=== PATIENT | male | born 1930 | race Caucasian/White ===

== ENCOUNTER 2016-07-31 13:24 | Emergency (ER) | payer OTHER, MEDICARE ==
[2016-07-31 13:31] VITALS: BP 141/83; PULSE 91; TEMP 97.5; BMI 18.6
== END 2016-07-31 14:18 | disposition left against medical advice (07) ==
LOC: EDBD → JER 13:24
DX: Z53.21 Procedure and treatment not carried out due to patient leaving prior to being seen by health care provider (principal)
CPT/HCPCS: 99281-25

== ENCOUNTER 2016-08-11 14:05 | Observation (INO) | payer OTHER, MEDICARE ==
[2016-08-11] MEDS ORDERED: SODIUM CHLORIDE 1,000 ML IV SCH (14:45)
--- NOTE | 2016-08-11 14:51 | PDOC ---
History of Present Illness - General History Source: Patient, Spouse Exam Limitations: No Limitations - History of Present Illness Initial Comments: 08/11/16 14:48 The patient is an 86-year-old male, accompanied by spouse, with a significant past medical history of chronic constipation, glaucoma and borderline diabetes who presents to the emergency department via EMS for evaluation of generalized weakness and vomiting. As per patients spouse, the patient was noted to have a headache, experiencing nausea with an episode of emesis. Patients spouse attributes to his chronic generalized weakness and loss of appetite for the past 6 months. No recent fevers, chills, cough, chest pain, shortness of breath. Patients spouse also reports his chronic constipation, for which he underwent an outpatient CT at [facility], approximately 1 month ago, which was reportedly negative. Patient's spouse reports the patient has been compliant with laxatives and enemas for the past 3 days and admits his constipation has been resolved after the intake of magnesium citrate and Senna, as he had a large bowel movement this morning. No history of abdominal surgeries. Allergies: None Known Past Surgical History: None reported Social History: Retired. Lives at home with his . Never smoked. No ETOH and recreational drug use. Primary Care Physician: Dr. Carmine Kramer Remainder of the review of systems is negative. <Jie Laguerre - Last Filed: 08/11/16 16:45> - History of Present Illness Initial Comments: 08/11/16 15:58 86-year-old male with a past medical history of chronic constipation and glaucoma as well as borderline diabetes Patient's says in the past few months has lost 20 pounds, and his chronic constipation and has gotten worse, and his appetite has diminished He was seen at [facility] about a month ago, and reportedly had a CT scan of the abdomen and pelvis which was normal He got more constipated, but yesterday he took mag citrate, and had a very large bowel movement, and then took senna last night and had another large bowel movement this morning His brought him in because today he was complaining about a headache and nausea, and then vomited a few times She states for the past few days she's been weak and not eating He denies any fevers or chills He denies any urinary symptoms He states that he has not had any abdominal pain since he had his bowel movement <Ed Sanchezee - Last Filed: 08/11/16 20:37> - General Chief Complaint: Constipation Stated Complaint: DIZZINESS, VOMITING Time Seen by Provider: 08/11/16 14:10 Past History <Jie Laguerre - Last Filed: 08/11/16 16:45> - Psycho/Social/Smoking Cessation Hx Anxiety: No Suicidal Ideation: No Smoking History: Never smoked Have you smoked in the past 12 months: No Information on smoking cessation initiated: No Hx Alcohol Use: No Drug/Substance Use Hx: No Substance Use Type: None <Jackeline Sanchez - Last Filed: 08/11/16 20:37> - Past Medical History Allergies/Adverse Reactions: Allergies Allergy/AdvReac Type Severity Reaction Status Date / Time No Known Allergies Allergy Verified 08/11/16 14:25 Home Medications: Ambulatory Orders Unobtainable [Unobtainable] 08/11/16 Review of Systems - Review of Systems Able to Perform ROS?: Yes Comments:: 08/11/16 14:48 12 point review of systems is as per history of present illness and otherwise negative. <CarlottaJie - Last Filed: 08/11/16 16:45> *Physical Exam - Vital Signs Last Vital Signs Temp Pulse Resp BP Pulse Ox 98.6 F 62 20 135/58 100 08/11/16 14:22 08/11/16 14:22 08/11/16 14:22 08/11/16 14:22 08/11/16 14:22 <CarlottaJie - Last Filed: 08/11/16 16:45> - Vital Signs Last Vital Signs Temp Pulse Resp BP Pulse Ox 98.6 F 62 20 135/58 100 08/11/16 14:22 08/11/16 14:22 08/11/16 14:22 08/11/16 14:22 08/11/16 14:22 - Physical Exam Comments: 08/11/16 14:50 Physical exam Last Vital Signs Temp Pulse Resp BP Pulse Ox 98.6 F 62 20 135/58 100 08/11/16 14:22 08/11/16 14:22 08/11/16 14:22 08/11/16 14:22 08/11/16 14:22 GENERAL: The patient is awake, alert, and answering questions Thin, almost cachectic male in no acute distress HEAD: Normal with no signs of trauma. EYES: Sclera anicteric, conjunctiva normal ENT: Mucous membranes slightly dry NECK: Normal range of motion, supple LUNGS: Breath sounds equal, clear to auscultation bilaterally. No wheezes, and no crackles. HEART: Regular rate and rhythm, normal S1 and S2 without murmur, rub or gallop. ABDOMEN: Soft, nontender, normoactive bowel sounds. No guarding, no rebound. No masses appreciated. EXTREMITIES: Normal range of motion, no edema. No clubbing or cyanosis. No cords, erythema, or tenderness. NEUROLOGICAL: Alert and answering questions, moving all extremities, grossly nonfocal neurologic exam PSYCH: Normal mood, normal affect. SKIN: Warm, Dry, normal turgor, no rashes or lesions noted. <Jackeline Sanchez - Last Filed: 08/11/16 20:37> ED Treatment Course - LABORATORY CBC & Chemistry Diagram: 08/11/16 14:44 08/11/16 14:44 - ADDITIONAL ORDERS Additional order review: Laboratory Results 08/11/16 08/11/16 14:55 14:44 Sodium 141 Potassium 4.7 Chloride 105 Carbon Dioxide 24 Anion Gap 12 BUN 18 Creatinine 1.3 Creat Clearance w eGFR 52.10 Random Glucose 230 H Calcium 8.9 Magnesium 2.6 H Total Bilirubin 0.5 AST 16 ALT 17 Alkaline Phosphatase 85 Creatine Kinase 77 Troponin I < 0.02 Total Protein 6.3 L Albumin 3.6 Lipase 151 Urine Color Yellow Urine Appearance Slcloudy Urine pH 8.0 Ur Specific [place] 1.009 Urine Protein Negative Urine Glucose (UA) Negative Urine Ketones Trace H Urine Blood Negative Urine Nitrite Negative Urine Bilirubin Negative Urine Urobilinogen Negative Ur Leukocyte Esterase Negative 08/11/16 14:44 RBC 4.51 MCV 92.3 MCHC 32.9 RDW 14.3 MPV 9.3 - RADIOLOGY Radiograph Interpretation: 08/11/16 15:50 EXAM: CT/HEAD CT WITHOUT CONTRAST IMPRESSION: There is no CT evidence of intracranial hemorrhage. No discrete infarct is identified. Mild to moderate periventricular and subcortical microvascular ischemic gliosis is noted. There is no obvious mass lesion. No extra axial fluid collection. Involutional changes are seen with corresponding mild to moderate ventricular dilatation. Small physiologic bilateral basal ganglia calcifications. Bilateral maxillary sinus and left sphenoid sinus mucus retention cysts/polyps are visualized. Mild bilateral ethmoid sinus mucosal thickening. EXAM: CT/ABDOMEN PELVIS CT W/O CONTR IMPRESSION: Multiplanar imaging was performed. As requested no intravenous or enteric contrast was administered. There is no evidence of pneumoperitoneum, free intraperitoneal fluid or bowel obstruction. The partially visualized appendix demonstrates no obvious abnormality. No indirect CT signs of acute appendicitis are noted. Left-sided colonic diverticulosis without definite evidence of acute diverticulitis. The partially imaged lower lung villegas demonstrate minimal to mild bibasilar discoid atelectasis/ linear parenchymal scarring. No aortic aneurysm. A 1 cm right hepatic lobe cyst is noted. The liver appears unremarkable in overall size. The spleen , pancreas, gallbladder, adrenal glands and kidneys demonstrate no obvious noncontrast abnormality. Incidental bilateral renal cortical cysts. No obvious lymphadenopathy. Very small left inguinal hernia containing fat only. Mild to moderate prostate enlargement. Mild to moderate very likely chronic L4 superior endplate compression fracture without bony retropulsion. <Jie Laguerre - Last Filed: 08/11/16 16:45> - LABORATORY CBC & Chemistry Diagram: 08/11/16 14:44 08/11/16 14:44 - RADIOLOGY Radiology Studies Ordered: Category Date Time Status ABDOMEN & PELVIS CT W/O CONTR [CT] Stat CT Scan 08/11/16 14:[address] WITHOUT CONTRAST [CT] Stat CT Scan 08/11/16 14:36 Ordered CHEST X-RAY PORTABLE* [RAD] Stat Radiology 08/11/16 14:36 Ordered <Jackeline Sanchez - Last Filed: 08/11/16 20:37> Medical Decision Making - Medical Decision Making 08/11/16 16:05 MicroBlogged Hospitalist. <Jie Laguerre - Last Filed: 08/11/16 16:45> - Medical Decision Making 08/11/16 14:48 86-year-old male with a past medical history of chronic constipation and glaucoma as well as borderline diabetes Patient's says in the past few months has lost 20 pounds, and his chronic constipation and has gotten worse, and his appetite has diminished He was seen at [facility] about a month ago, and reportedly had a CT scan of the abdomen and pelvis which was normal He got more constipated, but yesterday he took mag citrate, and had a very large bowel movement, and then took senna last night and had another large bowel movement this morning His brought him in because today he was complaining about a headache and nausea, and then vomited a few times She states for the past few days she's been weak and not eating He denies any fevers or chills He denies any urinary symptoms He states that he has not had any abdominal pain since he had his bowel movement 08/11/16 14:52 EKG Normal sinus rhythm 63, left axis deviation -50 Normal [place] interval Right bundle branch block Left anterior fascicular block Diffuse nonspecific ST-T waves 1 PAC is noted There are no old EKGs available for comparison at this time 08/11/16 15:57 Laboratory Results - last 24 hr 08/11/16 08/11/16 08/11/16 14:44 14:44 14:55 WBC 13.3 H RBC 4.51 Hgb 13.7 Hct 41.6 MCV 92.3 MCHC 32.9 RDW 14.3 Plt Count 206 MPV 9.3 Sodium 141 Potassium 4.7 Chloride 105 Carbon Dioxide 24 Anion Gap 12 BUN 18 Creatinine 1.3 Creat Clearance w eGFR 52.10 Random Glucose 230 H Calcium 8.9 Magnesium 2.6 H Total Bilirubin 0.5 AST 16 ALT 17 Alkaline Phosphatase 85 Creatine Kinase 77 Troponin I < 0.02 Total Protein 6.3 L Albumin 3.6 Lipase 151 Urine Color Yellow Urine Appearance Slcloudy Urine pH 8.0 Ur Specific [place] 1.009 Urine Protein Negative Urine Glucose (UA) Negative Urine Ketones Trace H Urine Blood Negative Urine Nitrite Negative Urine Bilirubin Negative Urine Urobilinogen Negative Ur Leukocyte Esterase Negative CT scan of the abdomen and pelvis without contrast There is left-sided colonic diverticulosis without acute diverticulitis The appendix is normal There is a very small left inguinal hernia containing fat only No definite acute pathology is identified CT scan of the head without No CT evidence of acute intracranial pathology Patient vomited some mildly brownish material-given Zofran and Protonix Elevated white count vomiting dehydration will need admission-will merly hospitalist Unexplained weight loss, vomiting, dehydration case d/w hospitalist continue gentle IV hydrarion <Jackeline Sanchez - Last Filed: 08/11/16 20:37> *DC/Admit/Observation/Transfer - Attestations Scribe Attestion: 08/11/16 14:48 Documentation prepared by Jie Laguerre, acting as medical records clerk for Jackeline Sanchez MD. <Jie Laguerre - Last Filed: 08/11/16 16:45> - Discharge Dispostion Admit: Yes <Jackeline Sanchez - Last Filed: 08/11/16 20:37> Diagnosis at time of Disposition: Vomiting, Abdominal pain, Dehydration, Headache, Weight loss, unintentional - Referrals
[2016-08-11 14:56] LABS: MCH 30.4 pg (25.7-33.7); MCHC 32.9 g/dl (32.0-35.9); MEAN CELL VOLUME 92.3 fl (80-96); MEAN PLT VOLUME 9.3 fl (7.5-11.1); PLATELET COUNT 206 K/MM3 (134-434); RDW 14.3 % (11.9-15.9); WHITE BLOOD COUNT 13.3 K/mm3 (4.0-10.0)
[2016-08-11 15:13] LABS: URINE APPEARANCE SLCLOUDY; URINE BILIRUBIN NEGATIVE (NEGATIVE); URINE BLOOD NEGATIVE (NEGATIVE); URINE COLOR YELLOW; URINE GLUCOSE (UA) NEGATIVE (NEGATIVE); URINE KETONE TRACE (NEGATIVE); URINE LEUK ESTERASE NEGATIVE (NEGATIVE); URINE NITRITE NEGATIVE (NEGATIVE); URINE PROTEIN NEGATIVE (NEGATIVE); URINE UROBILINOGEN NEGATIVE E.U./dl (0.2-1.0)
[2016-08-11 15:14] LABS: ALBUMIN 3.6 g/dl (3.4-5.0); ANION GAP 12 (8-16); BILIRUBIN,TOTAL 0.5 mg/dL (0.2-1.0); CALCIUM 8.9 mg/dL (8.5-10.1); CO2 24 mmol/L (21-32); CREATININE 1.3 mg/dL (0.7-1.3); GLUCOSE,RANDOM 230 mg/dL (74-106); MAGNESIUM 2.6 mg/dL (1.8-2.4); SGOT/AST 16 U/L (15-37); SGPT/ALT 17 U/L (12-78); TOT PROT 6.3 g/dl (6.4-8.2)
[2016-08-11 15:17] LABS: ALK PHOS 85 U/L (45-117); TROPONIN I < 0.02 ng/ml (0.00-0.05)
[2016-08-11] MEDS ORDERED: ONDANSETRON 4 MG/2 ML VIAL ONE (15:33)
[2016-08-11] MEDS ORDERED: PANTOPRAZOLE SODIUM 40 MG VIAL ONE (15:46)
[2016-08-11] MEDS ORDERED: ONDANSETRON 4 MG/2 ML VIAL IVPUSH ONE (15:46)
[2016-08-11] MEDS ORDERED: PANTOPRAZOLE SODIUM 40 MG in SODIUM CHLORIDE 100 ML IVPB ONE (15:46)
[2016-08-11] MEDS ORDERED: ONDANSETRON 4 MG/2 ML VIAL IVPB ONE (16:07)
[2016-08-11] MEDS ORDERED: ACETAMINOPHEN 325 MG TABLET (FP) PO PRN (18:05)
[2016-08-11] MEDS ORDERED: ONDANSETRON 4 MG/2 ML VIAL IVPB PRN (18:05)
--- NOTE | 2016-08-11 18:19 | PN ---
Teaching Attending Note Name of Resident: Skip Moise ATTENDING PHYSICIAN STATEMENT I saw and evaluated the patient. I reviewed the resident's note and discussed the case with the resident. I agree with the resident's findings and plan as documented. SUBJECTIVE:86yo M c/o dizzyness this morning after having a large BM. suffers from chronic constipation and took senna and magnesium citrate yesterday with a large BM last night and then another one this morning. Dizzyness was assoc with LOWE with nausea and several episodes of vomiting, last one in the ER with brownish fluid material. pt states his last meal was breakfast which consisted of coffee and a few cookies. +25 lb weight loss over the past few months and decreased appetite. he has been feeling generalized weakness and difficulty ambulating because he feels fatigue all the time. never had colonoscopy. Saw GI doctor a few weeks ago who did a CT scan which was reported as negative and said no further workup. who is present wants a diagnosis and requesting a full evaluation. denies CP, SOB,fever, chills, dysuria, OBJECTIVE: Last Vital Signs Temp Pulse Resp BP Pulse Ox 98.6 F 62 20 135/58 100 08/11/16 14:22 08/11/16 14:22 08/11/16 14:22 08/11/16 14:22 08/11/16 14:22 General NAD thin appearing male CV Lungs Abdomen ASSESSMENT AND PLAN: 86yo M with chronic constipation came to the ER and was admitted for further evaluation of their emergent condition 1. Dizzyness- Medicine observation. likely due to dehydration and poor oral intake. start NS @50cc/h, nausea and pain medications. will slowly advance diet as tolerated. PT evaluation 2. Constipation-instructed need to increase fiber in the diet. start colace standing dose and informed pt to have daily BM. 3. Significant weight loss- 25lb weight loss in several months with constipation and nausea. believe pt would likely benefit from colonscopy. never had in the past. going for 2nd opinion on 08/13 with GI doctor from [facility]. dietary consult 4. d/c planning once tolerating po.
[2016-08-11] MEDS: SODIUM CHLORIDE 1,000 ML IV SCH ×2 (18:54→21:56)
--- NOTE | 2016-08-11 19:04 | HP ---
CHIEF COMPLAINT: dizziness, constipation PCP: HISTORY OF PRESENT ILLNESS: 86 y/o M w/ PMH of constipation and glaucoma comes in w/ c/c of dizziness since this AM. Pt states over last 3 months he has been feeling weak, lost 20 pounds , has decreased appetite, and has had constipation. This AM he had coffee and biscuits for breakfast and no other food. He had abd CT one month ago at [facility] that was unremarkable. For his constipation he tried taking milk of magnesia which did not help then he tried mag citrate and had a large BM mostly diarrhea. Afterwards he took senna and another large BM also mostly diarrhea this AM. He began to feel dizzy, had ringing in his ears, and thought he may have had a stroke and decided to come to the ER. He also c/o decreased ability to walk over the last month due to weakness. Denies F/C, CP, SOB. Also had an episode of emesis today. Last Gi doctor he saw said he no colonoscopy was necessary. Pt has never had a colonoscopy in past. Pt has 2nd opinion appt scheduled for Friday. ER course was notable for: (1) CT abd (2) Head CT (3) Recent Travel: PAST MEDICAL HISTORY: constipation, glaucome, ventral hernia PAST SURGICAL HISTORY: Social History: Smoking: denies Alcohol: denies Drugs: denies Allergies No Known Allergies Allergy (Verified 08/11/16 14:25) HOME MEDICATIONS: Medication Instructions Recorded Unobtainable [Unobtainable] 08/11/16 REVIEW OF SYSTEMS CONSTITUTIONAL: Generalized weakness, loss ofappetite, weight change Absent: fever, chills, HEENT: Tinnitus Absent: rhinorrhea, nasal congestion, throat pain, throat swelling, difficulty swallowing, mouth swelling, ear pain, eye pain, visual changes CARDIOVASCULAR: Absent: chest pain, syncope, palpitations, irregular heart rate, lightheadedness , peripheral edema RESPIRATORY: Absent: cough, shortness of breath, dyspnea with exertion, orthopnea, wheezing, stridor, hemoptysis GASTROINTESTINAL: Nausea, vomiting, diarrhea, constipation Absent: abdominal pain, abdominal distension, melena, hematochezia GENITOURINARY: Absent: dysuria, frequency, urgency, hesitancy, hematuria, flank pain, genital pain MUSCULOSKELETAL: Leg weakness Absent: myalgia, arthralgia, joint swelling, back pain, neck pain SKIN: Absent: rash, itching, pallor HEMATOLOGIC/IMMUNOLOGIC: Absent: easy bleeding, easy bruising, lymphadenopathy, frequent infections ENDOCRINE: Absent: unexplained weight gain, unexplained weight loss, heat intolerance, cold intolerance NEUROLOGIC: Dizziness Absent: headache, focal weakness or paresthesias, unsteady gait, seizure, mental status changes, bladder or bowel incontinence PSYCHIATRIC: Absent: anxiety, depression, suicidal or homicidal ideation, hallucinations. PHYSICAL EXAMINATION GENERAL: Awake, alert, and fully oriented, in no acute distress. HEAD: Normal with no signs of trauma. EYES: Pupils equal, round and reactive to light, extraocular movements intact, sclera anicteric, conjunctiva clear. No lid lag. EARS, NOSE, THROAT: Dry mucous membranes. NECK: Normal range of motion, supple without lymphadenopathy, JVD, or masses. LUNGS: Breath sounds equal, clear to auscultation bilaterally. No wheezes, and no crackles. No accessory muscle use. HEART: Regular rate and rhythm, normal S1 and S2 without murmur, rub or gallop. ABDOMEN: Soft, mild epigastric tenderness, not distended, normoactive bowel sounds, no guarding, no rebound, no masses. No hepatomegaly or splenomegaly. MUSCULOSKELETAL: Normal range of motion at all joints. No bony deformities or tenderness. No CVA tenderness. LOWER EXTREMITIES: 2+ pulses, warm, well-perfused. No calf tenderness. No peripheral edema. NEUROLOGICAL: Normal speech. Gait not observed. PSYCHIATRIC: Cooperative. Good eye contact. Appropriate mood and affect. SKIN: Warm, dry, normal turgor, no rashes or lesions noted. CBCD WBC 13.3 K/mm3 (4.0-10.0) H 08/11/16 14:44 RBC 4.51 M/mm3 (4.00-5.60) 08/11/16 14:44 Hgb 13.7 GM/dL (11.7-16.9) 08/11/16 14:44 Hct 41.6 % (35.4-49) 08/11/16 14:44 MCV 92.3 fl (80-96) 08/11/16 14:44 MCHC 32.9 g/dl (32.0-35.9) 08/11/16 14:44 RDW 14.3 % (11.9-15.9) 08/11/16 14:44 Plt Count 206 K/MM3 (134-434) 08/11/16 14:44 MPV 9.3 fl (7.5-11.1) 08/11/16 14:44 CMP Sodium 141 mmol/L (136-145) 08/11/16 14:44 Potassium 4.7 mmol/L (3.5-5.1) 08/11/16 14:44 Chloride 105 mmol/L (98-107) 08/11/16 14:44 Carbon Dioxide 24 mmol/L (21-32) 08/11/16 14:44 Anion Gap 12 (8-16) 08/11/16 14:44 BUN 18 mg/dL (7-18) 08/11/16 14:44 Creatinine 1.3 mg/dL (0.7-1.3) 08/11/16 14:44 Creat Clearance w eGFR 52.10 (>60) 08/11/16 14:44 Random Glucose 230 mg/dL (74-106) H 08/11/16 14:44 Calcium 8.9 mg/dL (8.5-10.1) 08/11/16 14:44 Total Bilirubin 0.5 mg/dL (0.2-1.0) 08/11/16 14:44 AST 16 U/L (15-37) 08/11/16 14:44 ALT 17 U/L (12-78) 08/11/16 14:44 Alkaline Phosphatase 85 U/L (45-117) 08/11/16 14:44 Total Protein 6.3 g/dl (6.4-8.2) L 08/11/16 14:44 Albumin 3.6 g/dl (3.4-5.0) 08/11/16 14:44 CARDIAC ENZYMES Creatine Kinase 77 IU/L (39-308) 08/11/16 14:44 Troponin I < 0.02 ng/ml (0.00-0.05) 08/11/16 14:[address] scan of the abdomen and pelvis without contrast There is left-sided colonic diverticulosis without acute diverticulitis The appendix is normal There is a very small left inguinal hernia containing fat only No definite acute pathology is identified CT scan of the head without No CT evidence of acute intracranial pathology Active Medications Acetaminophen (Tylenol -) 650 mg PO Q4H PRN PRN Reason: FEVER OR PAIN Docusate Sodium (Colace -) 100 mg PO TID [facility] Sodium Chloride (Normal Saline -) 1,000 mls @ 50 mls/hr IV ASDIR SHAYLA Stop: 08/12/16 18:06 Last Admin: 08/11/16 18:54 Dose: 50 mls/hr Ondansetron HCl (Zofran Injection) 4 mg IVPB Q6H PRN PRN Reason: NAUSEA ASSESSMENT/PLAN: 86 y/o M with sig PMH of constipation presented to ER after feeling dizzy after having N/V, diarrhea. In obs currently. -Dizziness -most likely secondary to dehydration from poor oral intake, vomiting, and diarrhea. -NS @ 50 ml/hr -Advance diet as tolerated -Nausea -Zofran 4 mg IV q6h PRN -Constipation -colace 100 mg TID -will need outpatient f/u by GI and colonoscopy recommended. -Weight Loss -poor oral intake -will need out patient f/u by GI and colonoscopy recommended. -Will refer to GI doctors from [facility] and has appt on Friday for a 2nd opinion GI doctor -Educated on diet and will require further education on diet - dietary consult -Fatigue -most likely secondary to poor oral intake, and possible underlying GI etiology -will need colonoscopy -PT eval -Dispo: -Monitor in obs and can d/c once tolerating diet. Problem List - Problem (1) Abdominal pain Code(s): R10.9 - UNSPECIFIED ABDOMINAL PAIN (2) Dehydration Code(s): E86.0 - DEHYDRATION (3) Headache Code(s): R51 - HEADACHE (4) Vomiting Code(s): R11.10 - VOMITING, UNSPECIFIED (5) Weight loss, unintentional Code(s): R63.4 - ABNORMAL WEIGHT LOSS Visit type - Emergency Visit Emergency Visit: Yes ED Registration Date: 08/11/16 Care time: The patient presented to the Emergency Department on the above date and was hospitalized for further evaluation of their emergent condition. - New Patient This patient is new to me today: Yes Date on this admission: 08/11/16 - Critical Care Critical Care patient: No
[2016-08-11] MEDS: DOCUSATE SODIUM 100 MG CAPSULE (FP) PO SCH (22:42)
[2016-08-12 02:00] VITALS: BMI 25.0
[2016-08-12 06:40] VITALS: TEMP 98.1
[2016-08-12] MEDS: DOCUSATE SODIUM 100 MG CAPSULE (FP) PO SCH (06:43)
[2016-08-12 07:09] LABS: BASOPHIL 0.4 % (0-2.0); EOSINOPHIL 0.5 % (0-4.5); MCH 31.1 pg (25.7-33.7); MCHC 33.8 g/dl (32.0-35.9); MEAN CELL VOLUME 91.9 fl (80-96); MEAN PLT VOLUME 8.8 fl (7.5-11.1); NEUTROPHILS 75.2 % (42.8-82.8); PLATELET COUNT 163 K/MM3 (134-434); WHITE BLOOD COUNT 9.5 K/mm3 (4.0-10.0)
[2016-08-12 07:34] LABS: CALCIUM 7.9 mg/dL (8.5-10.1); CREATININE 1.1 mg/dL (0.7-1.3)
--- NOTE | 2016-08-12 09:25 | EKG ---
Test Reason : Blood Pressure : / mmHG Vent. Rate : 062 BPM Atrial Rate : 062 BPM P-R Int : 184 ms QRS Dur : 126 ms QT Int : 452 ms P-R-T Axes : 093 -49 047 degrees QTc Int : 458 ms POOR DATA QUALITY, INTERPRETATION MAY BE ADVERSELY AFFECTED SINUS RHYTHM WITH PREMATURE ATRIAL COMPLEXES RIGHT BUNDLE BRANCH BLOCK LEFT ANTERIOR FASCICULAR BLOCK BIFASCICULAR BLOCK SEPTAL INFARCT , AGE UNDETERMINED ABNORMAL ECG NO PREVIOUS ECGS AVAILABLE Confirmed by ANDREIA ROJAS MD ([id number]) on 08/12/2016 9:25:36 AM Referred By: Confirmed By:ANDREIA ROJAS MD
--- NOTE | 2016-08-12 11:51 | DS ---
Physical Exam: SUBJECTIVE: Patient seen and examined. nausea and vomiting resolved. no more episodes of dizzyness. no BM since presentation. tolerated diet this morning and ate >75%. denies CP, SOB,fever, chills, N/V/C/D OBJECTIVE: Vital Signs Period Temp Pulse Resp BP Sys/Fournier Pulse Ox Last 24 Hr 98.1 F-98.5 F 64-76 18-18 128-131/57-58 PHYSICAL EXAM GENERAL: The patient is awake, alert, and fully oriented, in no acute distress. thin appearing male HEAD: Normal with no signs of trauma. EYES: PERRL, extraocular movements intact, sclera anicteric, conjunctiva clear. ENT: Ears normal, nares patent, oropharynx clear without exudates, moist mucous membranes. NECK: Trachea midline, full range of motion, supple. LUNGS: Breath sounds equal, clear to auscultation bilaterally, no wheezes, no crackles, no accessory muscle use. HEART: Regular rate and rhythm, S1, S2 without murmur, rub or gallop. ABDOMEN: Soft, nontender, nondistended, normoactive bowel sounds, no guarding, no rebound, no hepatosplenomegaly, no masses. EXTREMITIES: 2+ pulses, warm, well-perfused, no edema. NEUROLOGICAL: Cranial nerves II through XII grossly intact. Normal speech, gait not observed. PSYCH: Normal mood, normal affect. SKIN: Warm, dry, normal turgor, no rashes or lesions noted. LABS Laboratory Results - last 24 hr 08/12/16 08/12/16 06:05 06:05 WBC 9.5 RBC 3.78 L Hgb 11.7 D Hct 34.7 L D MCV 91.9 MCHC 33.8 RDW 14.0 Plt Count 163 D MPV 8.8 Neutrophils % 75.2 Lymphocytes % 16.0 Monocytes % 7.9 Eosinophils % 0.5 Basophils % 0.4 Sodium 147 H Potassium 3.6 D Chloride 113 H Carbon Dioxide 23 Anion Gap 11 BUN 14 D Creatinine 1.1 Random Glucose 140 H D Calcium 7.9 L HOSPITAL COURSE: Date of Admission:08/11/16 Date of Discharge: 08/12/16 Admitting diagnosis: Dehydration, dizzyness Pre hospital course :86yo M c/o dizzyness this morning after having a large BM. suffers from chronic constipation and took senna and magnesium citrate yesterday with a large BM last night and then another one this morning. Dizzyness was assoc with LOWE with nausea and several episodes of vomiting, last one in the ER with brownish fluid material. pt states his last meal was breakfast which consisted of coffee and a few cookies. +25 lb weight loss over the past few months and decreased appetite. he has been feeling generalized weakness and difficulty ambulating because he feels fatigue all the time. never had colonoscopy. Saw GI doctor a few weeks ago who did a CT scan which was reported as negative and said no further workup. who is present wants a diagnosis and requesting a full evaluation. denies CP, SOB,fever, chills, dysuria, Subsequent hospital course Medicine observation. started on IVF and nausea medications. symptoms resolved. imaging studies no acute disease and no significant abnormality of labs. next day nausea resolved and tolerated regular diet. evaluated by PT who recommend RW. dietary evaluation recommended high fiber diet and appetite stimulant. pt has appointment tomorrow with GI doctor for 2nd opinion, requested name of doctor affiliated with this hospital to see if they dont like the 2nd opinion and one was provided. d/c home with VNS Minutes to complete discharge: 40 Discharge Summary Reason For Visit: DIZZINESS,ABDOMINAL PAIN,DEHYDRATION Current Active Problems Abdominal pain (Acute) Dehydration (Acute) Headache (Acute) Vomiting (Acute) Weight loss, unintentional (Acute) Condition: Improved - Instructions Diet, Activity, Other Instructions: Drink plenty of water. Increase your fiber intake. Refer to recommendations given to you by account receivable clerk Isis taking megace, this medication is an appetite stimulant and will increase your appetite Take colace daily to having a bowel movement every day, you can decrease the amount you take if you start having more bowel movement in a day. Walk with rolling walker only. 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 You would likely benefit from further work up for your weight loss and constipation including colonoscopy. Referrals: Maximo Rodriguez MD [Staff Physician] - Carmine Kramer MD [Staff Physician] - Disposition: HOME - Home Medications Comprehensive Discharge Medication List: Ambulatory Orders Docusate Sodium [Colace -] 100 mg PO TID #90 capsule 08/12/16 Megestrol Acetate Oral Susp [Megace Liquid -] 400 mg PO DAILY #300 cup 08/12/16 This patient is new to me today: No Emergency Visit: Yes ED Registration Date: 08/11/16 Care time: The patient presented to the Emergency Department on the above date and was hospitalized for further evaluation of their emergent condition. Critical Care patient: No - Discharge Referral Referred to [facility] No Physician Referral: Carmine Kramer MD ([facility])
[2016-08-12] MEDS ORDERED: MEGESTROL ACETATE 400 MG/10 ML UNIT DOSE CUP PO ONE (12:30)
[2016-08-12 12:35] VITALS: BP 123/74; PULSE 70
== END 2016-08-12 13:45 | disposition home or self-care (01) ==
LOC: JER 14:05 → INTOOBSV 16:35 → JERBED 16:35 → J8W 08-12 01:13
PROVIDERS: ADMIT Internal Medicine; ATTEND Internal Medicine
DX: R42 Dizziness and giddiness (principal); H40.89 Other specified glaucoma; K43.9 Ventral hernia without obstruction or gangrene; K59.09 Other constipation; R63.4 Abnormal weight loss; Z68.25 Body mass index [BMI] 25.0-25.9, adult; E86.0 Dehydration; R51 Headache
CPT/HCPCS: 36415; 70450-TC; 71010-TC; 74176-TC; 80048; 80053; 81003; 82550; 83690; 83735; 84484; 85025; 85027; 87254; 87804; 93005; 93010; 97116-GP; 97161-GP; 99285-25; G0378

== ENCOUNTER 2016-08-16 01:05 | Emergency (ER) | payer OTHER ==
[2016-08-16 01:13] VITALS: BMI 16.0
[2016-08-16] MEDS ORDERED: LACTATED RINGERS SOLUTION 1,000 ML IV SCH (01:15)
[2016-08-16 01:23] LABS: BASOPHIL 0.3 % (0-2.0); EOSINOPHIL 0.8 % (0-4.5); MCH 31.6 pg (25.7-33.7); MCHC 32.8 g/dl (32.0-35.9); MEAN CELL VOLUME 96.5 fl (80-96); MEAN PLT VOLUME 9.6 fl (7.5-11.1); NEUTROPHILS 63.2 % (42.8-82.8); PLATELET COUNT 210 K/MM3 (134-434); RDW 14.7 % (11.9-15.9); WHITE BLOOD COUNT 14.3 K/mm3 (4.0-10.0)
[2016-08-16 01:36] LABS: INR 1.25 (0.82-1.09); PROTHROMBIN TIME (PATIENT) 13.8 SEC (9.98-11.88)
[2016-08-16 01:40] LABS: ALLENS TEST POSITIVE; ART PUNCT SITE RIGHT RADIAL; ARTERIAL BLD GAS O2 SATURATION 98.3 % (90-98.9); ARTERIAL BLOOD GAS HCO3 10.4 meq/L (22-26); LPM/O2% 100%; MECH. VENT. Y; METHEMOGLOBIN 2.3 % (0.4-1.5); PT. ON O2? YES; TYPE OF O2 VENT; VENT RATE 12; VT/PRESS 500
[2016-08-16 01:41] LABS: ARTERIAL BLOOD GAS pH 7.03 (7.35-7.45)
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
[2016-08-16] MEDS ORDERED: [UNRECOGNIZED DRUG - OTHER] IV ONE (01:44)
[2016-08-16 01:45] LABS: ALBUMIN 2.9 g/dl (3.4-5.0); BILIRUBIN,TOTAL 0.3 mg/dL (0.2-1.0); CALCIUM 8.2 mg/dL (8.5-10.1); CREATININE 1.8 mg/dL (0.7-1.3); MAGNESIUM 2.3 mg/dL (1.8-2.4); TOT PROT 5.6 g/dl (6.4-8.2)
[2016-08-16 01:47] LABS: TROPONIN I 0.02 ng/ml (0.00-0.05)
[2016-08-16] MEDS ORDERED: SILVER SULFADIAZINE 1% TOP CREAM 50 GM JAR TP ONE ×2 (01:56→01:58)
[2016-08-16] MEDS ORDERED: LORAZEPAM CARPU-JECT 2 MG/ML DISP.SYRIN IVPUSH ONE (02:15)
[2016-08-16] MEDS ORDERED: LORAZEPAM CARPU-JECT 2 MG/ML DISP.SYRIN ONE (02:15)
[2016-08-16 02:31] VITALS: PULSE 86
[2016-08-16 03:12] VITALS: BP 162/78
--- NOTE | 2016-08-19 12:55 | EKG ---
Test Reason : Blood Pressure : / mmHG Vent. Rate : 070 BPM Atrial Rate : 070 BPM P-R Int : 180 ms QRS Dur : 128 ms QT Int : 456 ms P-R-T Axes : 084 -56 060 degrees QTc Int : 492 ms NORMAL SINUS RHYTHM RIGHT BUNDLE BRANCH BLOCK LEFT ANTERIOR FASCICULAR BLOCK BIFASCICULAR BLOCK ABNORMAL ECG NO PREVIOUS ECGS AVAILABLE Confirmed by LEANDRO BLANCO MD ([id number]) on 08/19/2016 12:55:04 PM Referred By: Confirmed By:LEANDRO BLANCO MD
== END 2016-08-16 03:12 | disposition short-term general hospital (02) ==
LOC: EDBD 01:05 → MERGE 01:05 → JER 01:05
PROC: 5A12012 Performance of Cardiac Output, Single, Manual (ICD-10-PCS; principal; 2016-08-16)
PROC: 3E033GC Introduction of Other Therapeutic Substance into Peripheral Vein, Percutaneous Approach (ICD-10-PCS; 2016-08-16)
PROC: 3E033NZ Introduction of Analgesics, Hypnotics, Sedatives into Peripheral Vein, Percutaneous Approach (ICD-10-PCS; 2016-08-16)
DX: T20.29XA Burn of second degree of multiple sites of head, face, and neck, initial encounter (principal); T21.24XA Burn of second degree of lower back, initial encounter; T22.292A Burn of second degree of multiple sites of left shoulder and upper limb, except wrist and hand, initial encounter; T22.291A Burn of second degree of multiple sites of right shoulder and upper limb, except wrist and hand, initial encounter; T58.8X1A Toxic effect of carbon monoxide from other source, accidental (unintentional), initial encounter; X02.8XXA Other exposure to controlled fire in building or structure, initial encounter; Y93.89 Activity, other specified; Y92.038 Other place in apartment as the place of occurrence of the external cause; Z86.74 Personal history of sudden cardiac arrest
CPT/HCPCS: 36415; 36600; 70450-TC; 71010-TC; 72125-TC; 72170-TC; 80053; 82375; 82550; 82803; 83050; 83605; 83735; 84484; 85025; 85610; 92950; 93005; 93010; 96365; 96366; 96375; 99285-25